=== PATIENT | male | born 1930 | race Caucasian/White ===

== ENCOUNTER 2016-07-13 07:57 | Inpatient (IN) | payer MEDICARE, BC ==
[2016-07-13] MEDS: Sodium Chloride 0.9% 10 ML Syringe FLUSH PRN ×5 (07:53→20:56)
[~2016-07-13 07:57] MED LIST: Furosemide 40 MG/4 ML VIAL IVPUSH ONE
[2016-07-13] MEDS ORDERED: Furosemide 40 MG/4 ML VIAL ONE (08:01)
[2016-07-13] MEDS ORDERED: Furosemide 40 MG/4 ML VIAL IVPUSH ONE ×2 (08:40→08:41)
[2016-07-13] MEDS ORDERED: Nitroglycerin/D5W 25 MG/250 ML BOTTLE IV SCH (09:15)
[2016-07-13] MEDS ORDERED: Morphine 2 MG/ML Syringe IVPUSH PRN (09:15)
[2016-07-13] MEDS ORDERED: Morphine 2 MG/ML Syringe IM ONE (09:21)
[2016-07-13] MEDS: Potassium Chloride 20 MEQ Tab.ER PO SCH ×2 (09:44→20:55)
--- NOTE | 2016-07-13 10:13 | PCM.HP ---
[id number]: Patient, EMS notes reviewed, Old records History Limitations: Reports: Respiratory distress - History of Present Illness Initial Comments - Free Text/Narative: 86-year-old male brought in with acute shortness of breath. Sudden onset this morning described as tightness and associated with difficulty breathing. The ambulance reported oxygenation of 81% on the scene. Patient has a history of CHF, atrial fibrillation, hyperlipidemia, and chronic kidney disease. He takes Coumadin for the atrial fibrillation. He complains of no fever or chills although the history is difficult to obtain because he is in mild to moderate respiratory distress. - Related Data Allergies/Adverse Reactions: Allergies Allergy/AdvReac Type Severity Reaction Status Date / Time No Known Allergies Allergy Verified 07/13/16 07:57 Home Medications: Home Meds Acetaminophen [Tylenol Extra Strength] 1,000 mg PO ACBREAKFAST 09/09/15 [History ] Acetaminophen [Tylenol Extra Strength] 500 mg PO BEDTIME 09/09/15 [History] Allopurinol [Zyloprim] 150 mg PO DAILY 09/09/15 [History] Aspirin [Halfprin] 81 mg PO DAILY 09/09/15 [History] Calcium Carb & Citrate/Vit D3 [Calcium + D3 ER Tablet] 1 each PO BID 09/09/15 [ History] Digoxin [Lanoxin] 125 mcg PO DAILY 09/09/15 [History] Furosemide [Lasix] 40 mg PO DAILY 09/09/15 [History] Levothyroxine [Synthroid] 50 mcg PO DAILY 09/09/15 [History] Metoprolol Succinate 50 mg PO DAILY 09/09/15 [History] Omeprazole 20 mg PO DAILY 09/09/15 [History] Simvastatin [Zocor] 80 mg PO BEDTIME 09/09/15 [History] Spironolactone [Aldactone] 25 mg PO DAILY 09/09/15 [History] Tamsulosin [Flomax] 0.4 mg PO DAILY 09/09/15 [History] Triamcinolone Acetonide [Triamcinolone Acetonide 0.1% Crm] 15 gm TOP BID [History] Warfarin [Coumadin] 4 mg PO DAILY 09/09/15 [History] traMADol [Ultram] 50 mg PO BID 09/09/15 [History] Magnesium Oxide 500 mg PO DAILY 12/04/15 [History] Past Medical History HEENT History: Reports: Cataract, Hard of hearing, Impaired vision Cardiovascular History: Reports: Afib, Bypass, Heart valve replacement, High cholesterol, Hypertension, [place] Other Cardiovascular History: [place] 2008- bypass Respiratory History: Reports: SOB Gastrointestinal History: Reports: Cholelithiasis Musculoskeletal History: Reports: Arthritis, Back pain, chronic, Gout, Osteoarthritis Neurological History: Reports: CVA, TIA Endocrine/Metabolic History: Reports: Hypothyroidism Dermatologic History: Reports: Chronic cellulitis, Venous stasis dermatitis - Infectious Disease History Infectious Disease History: Reports: Chicken pox - Past Surgical History HEENT Surgical History: Reports: Oral surgery Cardiovascular Surgical History: Reports: Carotid endarterectomy, Coronary artery bypass Respiratory Surgical History: Reports: None GI Surgical History: Reports: Cholecystectomy Neurological Surgical History: Reports: None Musculoskeletal Surgical History: Reports: None Dermatological Surgical History: Reports: None Social & Family History - Family History Family Medical History: Noncontributory - Tobacco Use Smoking Status *Q: Former Smoker Years of Tobacco use: 20 Used Tobacco, but Quit: Yes Month Tobacco Last Used: n/a Second Hand Smoke Exposure: No - Caffeine Use Caffeine Use: Reports: Coffee, Soda - Alcohol Use Days Per Week of Alcohol Use: 0 - Recreational Drug Use Recreational Drug Use: No H&P Review of Systems - Review of Systems: Review Of Systems: ROS reveals no pertinent complaints other than HPI. Exam - Exam Exam: See Below - Vital Signs Vital Signs: Last Vital Signs Temp 97.6 F 07/13/16 07:45 Pulse 110 H 07/13/16 07:45 Resp 30 H 07/13/16 07:45 BP 179/97 H 07/13/16 07:45 Pulse Ox 97 07/13/16 07:45 Weight: 77.111 kg - Exam Quality Assessment: supplemental oxygen General: moderate distress HEENT: PERRLA, Hearing intact, Mucosa moist & pink, Nares patent, Normal nasal septum, Posterior pharynx clear, Conjunctiva clear, EOMI, EACs clear, TMs clear Neck: supple, trachea midline, 2 Lungs: Decreased breath sounds, Crackles Cardiovascular: irregular rhythm Abdomen: normal bowel sounds, soft (Male) Exam: Deferred Rectal (Males) Exam: Deferred Back Exam: normal inspection, full range of motion, NT Extremities: edema Skin: warm Neurological: cranial nerves intact, reflexes equal bilateral Neuro Extensive - Mental Status: alert, oriented x3, normal mood/affect, normal cognition Neuro Extensive - Motor, Sensory, Reflexes: CN II-XII intact, normal gait, normal reflexes Psychiatric: normal affect - Patient Data Result Diagrams: 07/13/16 08:00 07/13/16 08:00 Imaging Impressions last 24 hrs: CXR shows bilateral infiltrates ECHO from 2016 shows EF of 30-40% EKG INTERPRETATION Rhythm: a-fib *Q Meaningful Use (ADM) - VTE *Q VTE Criteria *Q: - Stroke *Q Stroke Criteria *Q: - AMI *Q AMI Criteria *Q: - Problem List (1) CHF (congestive heart failure) SNOMED Code(s): 92191568 ICD Code: I50.9 - HEART FAILURE, UNSPECIFIED Status: Acute Current Visit : Yes Qualifiers: Congestive heart failure type: combined Congestive heart failure chronicity : acute on chronic Qualified Code(s): I50.43 - Acute on chronic combined systolic (congestive) and diastolic (congestive) heart failure (2) CKD (chronic kidney disease) SNOMED Code(s): 714097910 ICD Code: N18.9 - CHRONIC KIDNEY DISEASE, UNSPECIFIED Status: Chronic Current Visit: Yes Qualifiers: Chronic kidney disease stage: stage 3 (moderate) Qualified Code(s): N18.3 - Chronic kidney disease, stage 3 (moderate) (3) Afib SNOMED Code(s): 96561532 ICD Code: I48.91 - UNSPECIFIED ATRIAL FIBRILLATION Status: Chronic Current Visit: Yes Qualifiers: Atrial fibrillation type: chronic Qualified Code(s): I48.2 - Chronic atrial fibrillation (4) Anemia SNOMED Code(s): 684647551 ICD Code: D64.9 - ANEMIA, UNSPECIFIED Status: Acute Current Visit: Yes Qualifiers: Anemia type: other cause (5) BPH (benign prostatic hyperplasia) SNOMED Code(s): 965148409, 077758401 ICD Code: N40.0 - BENIGN PROSTATIC HYPERPLASIA WITHOUT LOWER URINRY TRACT SYMP Status: Acute Current Visit: Yes Qualifiers: Prostatic enlargement morphology: unspecified morphology Lower urinary tract symptom presence: symptoms present Qualified Code(s): N40.1 - Benign prostatic hyperplasia with lower urinary tract symptoms (6) Gout SNOMED Code(s): 86444252 ICD Code: M10.9 - GOUT, UNSPECIFIED Status: Chronic Current Visit: Yes Qualifiers: Gout site: unspecified site (7) Hyperlipemia SNOMED Code(s): 06191040 ICD Code: E78.5 - HYPERLIPIDEMIA, UNSPECIFIED Status: Chronic Current Visit: Yes Qualifiers: Hyperlipidemia type: unspecified Qualified Code(s): E78.5 - Hyperlipidemia , unspecified (8) HTN (hypertension) SNOMED Code(s): 85434732 ICD Code: I10 - ESSENTIAL (PRIMARY) HYPERTENSION Status: Acute Current Visit: Yes Problem List Initiated/Reviewed/Updated: Yes Orders Last 24hrs: Medication Orders Furosemide (Lasix) 20 mg IVPUSH TID LEONIDAS Nitroglycerin/Dextrose (Nitroglycerin 25 Mg/D5w 250 Ml) 25 mg in 250 mls @ 6 mls/hr IV TITRATE LEONIDAS; 10 MCG/MIN PRN Reason: Protocol Morphine Sulfate (Morphine) 2 mg IVPUSH Q2H PRN PRN Reason: Pain (severe 7-10) Potassium Chloride (Klor-Con M20) 20 meq PO BID LEONIDAS Last Admin: 07/13/16 09:44 Dose: 20 meq Sodium Chloride (Saline Flush) 10 ml FLUSH ASDIRECTED PRN PRN Reason: Keep Vein Open Last Admin: 07/13/16 09:31 Dose: 10 ml Admin: 07/13/16 09:07 Dose: 10 ml Admin: 07/13/16 08:04 Dose: 10 ml Admin: 07/13/16 07:53 Dose: 10 ml Assessment/Plan Comment:: He got 80 mg of Lasix in the emergency room and put out 600 mL of urine. We'll continue diuresis and I have ordered morphine when necessary, and a nitroglycerin drip for diuresis and pulmonary edema. We'll continue the rest of his home medication. We'll repeat labs in the morning. Oxygen by nasal cannula to keep oxygen above 92% if possible. He had an echo in August,with EF estimated at 30-40%.
[2016-07-13] MEDS ORDERED: Sodium Chloride 0.9% 1,000 ML IV SCH (10:25)
[2016-07-13] MEDS: Furosemide 20 MG/2 ML VIAL IVPUSH SCH ×2 (13:58→20:55)
--- NOTE | 2016-07-14 05:31 | ER ---
DATE SEEN: 07/13/2016 REASON FOR VISIT: Shortness of breath. HISTORY OF PRESENT ILLNESS: An 86-year-old male, brought in by ambulance from [place] because of shortness of breath. He called the ambulance because he was feeling short of breath. The EMS arrived and found him to be hypoxic at 81%. He has shortness of breath, cough, but denies any fever or chills. No chest pain. PAST MEDICAL HISTORY: CHF, atrial fibrillation, chronic renal failure, CKD, anemia of chronic disease. SOCIAL HISTORY: Lives alone. PHYSICAL EXAMINATION: VITAL SIGNS: Blood pressure is 179/97, respiratory rate is 30, and temperature 97.6. ENT: Negative. NECK: No JVD. CARDIOVASCULAR: Irregular rate and rhythm. RESPIRATORY: Crackles bilaterally. Mild distress. EXTREMITIES: 2+ peripheral edema. MENTAL STATUS: Alert. LABORATORY DATA: White cell count is normal, hemoglobin is 11.4, potassium is 138, creatinine 1.5. BNP is 1770. IMPRESSION: Acute CHF exacerbation. PLAN: Chest x-ray, portable, revealed bilateral infiltrates, possibly CHF related. Could not rule out pneumonia. [facility] because of bed availability. /[id number] NALLELY/MIRNA
[2016-07-14] MEDS: Furosemide 20 MG/2 ML VIAL IVPUSH SCH (08:05)
[2016-07-14] MEDS: Potassium Chloride 20 MEQ Tab.ER PO SCH ×2 (08:05→20:21)
[2016-07-14] MEDS: Sodium Chloride 0.9% 10 ML Syringe FLUSH PRN (08:10)
[2016-07-14] MEDS: Sodium Chloride 0.65% Nasal Spray 45 ML Bottle NAS SCH (09:35)
--- NOTE | 2016-07-14 12:54 | PN ---
DATE SEEN: 07/14/2016 CHIEF COMPLAINT: Shortness of breath. HISTORY OF PRESENT ILLNESS: An 86-year-old male who was admitted yesterday for shortness of breath, thought to be pulmonary edema. He feels better this morning. No chest pain. He complains of nose blockage on the left, no leg swelling. He feels short of breath only on moderate ambulation. No fever. PAST MEDICAL HISTORY: CKD, anemia, epistaxis, and atrial fibrillation. ALLERGIES: Reviewed. SOCIAL HISTORY: He is a former smoker. PHYSICAL EXAMINATION: VITAL SIGNS: Blood pressure is 152/73, pulse is 104 temperature 97.4. ENT: Negative except a blockage on the left nostril by a chunk of mucus. NECK: Supple. CHEST: Clear posteriorly. CARDIOVASCULAR: Irregular rate and rhythm. EXTREMITIES: No edema. Mental Status: Alert. LABORATORY DATA: Creatinine 1.6 today, CO2 is 21, troponin 0.011. BNP is pending. IMPRESSION: 1. Pulmonary edema from congestive heart failure, improved. 2. Hypertension. 3. Chronic kidney disease. 4. Anemia of chronic disease. 5. Atrial fibrillation. 6. Hyperlipidemia. 7. Gout. 8. BPH. PLAN: My plan is to convert IV Lasix to oral, change from ICU, discontinue Ortiz, and repeat labs in the morning. /[id number] NALLELY/MIRNA
[2016-07-14] MEDS: Furosemide 40 MG Tab PO SCH (13:43)
[2016-07-14] MEDS ORDERED: Warfarin 4 MG Tab PO SCH (16:00)
[2016-07-15] MEDS: Furosemide 40 MG Tab PO SCH ×2 (08:17→14:39)
[2016-07-15] MEDS: Potassium Chloride 20 MEQ Tab.ER PO SCH ×2 (08:18→20:33)
[2016-07-15] MEDS: Sodium Chloride 0.65% Nasal Spray 45 ML Bottle NAS SCH (08:18)
--- NOTE | 2016-07-15 08:19 | PN ---
DATE SEEN: 07/15/2016 CHIEF COMPLAINT: CHF. HISTORY OF PRESENT ILLNESS: This is an 86-year-old male, admitted for CHF, pulmonary edema has improved, but still has shortness of breath on ambulation. Denies any chest pain, leg swelling, fever, or cough. PAST MEDICAL HISTORY: He has a history of chronic kidney disease, anemia, hypertension, and CHF. He also has hyperlipidemia. SOCIAL HISTORY: He lives alone. Does not smoke or drink. PHYSICAL EXAMINATION: GENERAL: Not in any distress. VITAL SIGNS: Blood pressure is 120/62, pulse is 92, temperature 97.5. EARS, NOSE, AND THROAT: Negative. NECK: No JVD. CARDIOVASCULAR: Normal except with irregular rate and rhythm. RESPIRATORY: Clear. EXTREMITIES: No edema. MENTAL STATUS: Alert. LABORATORY DATA: BNP is down to 11,017, creatinine is up to 1.7. IMPRESSION: 1. Congestive heart failure exacerbation. 2. Chronic kidney disease. 3. Hypertension. 4. Atrial fibrillation. PLAN: We will keep him 1 more day. I will ask Physical therapy to evaluate him for possibility of going home alone and his ability to take care of himself. Repeat a basic metabolic profile in the morning. We will continue 40 mg of Lasix b.i.d. /[id number] NALLELY/MIRNA
[2016-07-15] MEDS ORDERED: Warfarin 4 MG Tab PO SCH (16:00)
[2016-07-16 08:06] VITALS: BP 131/66
--- NOTE | 2016-07-16 08:29 | PN ---
DATE SEEN: 07/16/2016 CHIEF COMPLAINT: Congestive heart failure. HISTORY OF PRESENT ILLNESS: This is an 86-year-old male from [place], [place], has a history of CHF, admitted for pulmonary edema and respiratory failure due to CHF, has improved with IV and eventually oral diurese. No complaints overnight. REVIEW OF SYSTEMS: No chest pain. No fever or chills. No headaches. CURRENT MEDICATIONS: Please see the nurse's notes and the electronic record. PHYSICAL EXAMINATION: VITAL SIGNS: Blood pressure is measured at 122/57, pulse is 88, and temp 97.7. EARS, NOSE, AND THROAT: Negative. NECK: No JVD. CHEST: Clear posteriorly. CARDIOVASCULAR: Irregular rate and rhythm. EXTREMITIES: No edema. MENTAL STATUS: Alert. LABORATORY DATA: BNP today is 1020. INR 2.05. Creatinine is 1.8. IMPRESSION: 1. Congestive heart failure exacerbation, improved; atrial fibrillation, stable on chronic anticoagulation. 2. Hypertension, stable. 3. Chronic kidney disease, mild exacerbation due to diuresis. PLAN: We will discharge him home today. I advised him to see his physician within 1 week of discharge and return to the ED with any worsening of symptoms. /[id number] NALLELY/MIRNA BATES
[2016-07-16] MEDS: Potassium Chloride 20 MEQ Tab.ER PO SCH (08:34)
[2016-07-16] MEDS: Sodium Chloride 0.65% Nasal Spray 45 ML Bottle NAS SCH (08:34)
[2016-07-16] MEDS: Furosemide 40 MG Tab PO SCH (08:34)
--- NOTE | 2016-07-16 13:00 | DISCH ---
DISCHARGE DATE: 07/16/2016 ADMISSION DIAGNOSES: 1. Congestive heart failure exacerbation. 2. Atrial fibrillation. 3. Chronic kidney disease. 4. Atrial fibrillation. 5. Hypertension. 6. Hyperlipidemia. 7. Gout. 8. Benign prostatic hypertrophy. 9. Anemia of chronic disease. DISCHARGE DIAGNOSES: 1. Congestive heart failure exacerbation. 2. Atrial fibrillation. 3. Chronic kidney disease. 4. Atrial fibrillation. 5. Hypertension. 6. Hyperlipidemia. 7. Gout. 8. Benign prostatic hypertrophy. 9. Anemia of chronic disease. CONSULTATIONS: None except physical therapy and occupational therapy BRIEF HISTORY: This is an 86-year-old male from [place], [place] is known to have atrial fibrillation, on chronic anticoagulation and history of CHF. He presented with shortness of breath and hypoxia, found to be in pulmonary edema. He was initially given Lasix and IV nitroglycerin drip. His symptoms improved dramatically over the next 2 to 3 days. He needed time for rehabilitation and oxygenation to normalize. He was eventually off oxygen. His heart rate remained stable throughout. Kidney was at 1.5 at admission and 1.8 on discharge. I discharged him on the following medications: 1. Lasix 20 mg b.i.d., previously on 20 mg daily. 2. 20 mEq of potassium chloride b.i.d. 3. He will also go on Coumadin as directed. 4. Finasteride 5 mg a day. 5. Metoprolol 50 mg daily. 6. Allopurinol 300 mg daily. 7. Aspirin 81 mg a day. 8. Calcium and vitamin D3 one a day. 9. Digoxin 125 mcg a day. 10.Levothyroxine 50 mcg daily. 11.Simvastatin 80 mg a day. 12.Flomax 0.4 mg daily. 13.He also takes triamcinolone cream b.i.d. 14.50 mg of tramadol b.i.d. FOLLOWUP: He will see his physician at the [facility], possibly at the end of this week. He is still weak and has difficulty with medications. I have suggested home health visit to help with medications and possibly with monitoring weight, symptoms, and coordinating phone calls to the physicians. I spent more than 35 minutes in the discharge of the patient. /[id number] NALLELY/MIRNA BATES
== END 2016-07-16 13:07 | disposition home health service (06) | DRG 291 ==
LOC: FB.ED 07:57 → FB.ICU 09:22 → FB.MS 07-14 08:30
PROVIDERS: ADMIT Family Medicine; ATTEND Family Medicine
DX: I13.0 Hypertensive heart and chronic kidney disease with heart failure and stage 1 through stage 4 chronic kidney disease, or unspecified chronic kidney disease (principal); I50.43 Acute on chronic combined systolic (congestive) and diastolic (congestive) heart failure; I48.2 Chronic atrial fibrillation; N18.3 Chronic kidney disease, stage 3 (moderate); E03.9 Hypothyroidism, unspecified; Z87.891 Personal history of nicotine dependence; Z79.01 Long term (current) use of anticoagulants; R09.02 Hypoxemia; R06.02 Shortness of breath; D63.1 Anemia in chronic kidney disease; N40.1 Benign prostatic hyperplasia with lower urinary tract symptoms; E78.5 Hyperlipidemia, unspecified; Z95.1 Presence of aortocoronary bypass graft; Z95.2 Presence of prosthetic heart valve; I25.2 Old myocardial infarction; Z86.73 Personal history of transient ischemic attack (TIA), and cerebral infarction without residual deficits; M10.9 Gout, unspecified; M19.90 Unspecified osteoarthritis, unspecified site; M54.9 Dorsalgia, unspecified; G89.29 Other chronic pain; Z79.82 Long term (current) use of aspirin
CPT/HCPCS: 36415; 71010; 80053; 83880; 84484; 85025; 85610; 93005; 96372; 96374; 96375; 99283; 99285; J1940 ×2; J7050 ×3; 82550; 82553; 97162-GP; 97165-GO; A9270-GY; J2270; J7040

== ENCOUNTER 2016-07-26 14:19 | Inpatient (IN) | payer MEDICARE, BC ==
--- NOTE | 2016-07-26 14:45 | EDM.PDOC ---
ED HPI RENAL/ - General Stated Complaint: POTASSIUM LEVEL Time Seen by Provider: 07/26/16 14:19 Source: Reports: Patient History Limitations: Reports: No limitations - History of Present Illness INITIAL COMMENTS - FREE TEXT/NARRATIVE: 86 years old w m came to the ed 1 day after he was seen at the [facility] in [place]. He received a phone call today, his potassium would be 6.0. Pt denied any physical symptoms. Pt is on oral potassium daily. H/O CHF H/O a-f, was at one time on dialysis. Poor historian. No family is present. ECH showed a fib with SVR. No peaked T waves. Symptom Onset Date: 07/25/16 Symptom Onset Time: 10:00 Timing/Duration: Reports: Day(s): Severity: moderate Associated Symptoms: Reports: denies other symptoms - Related Data Allergies/ADRs: Allergies Allergy/AdvReac Type Severity Reaction Status Date / Time No Known Allergies Allergy Verified 07/26/16 15:19 Home Meds: Home Meds Acetaminophen [Tylenol Extra Strength] 1,000 mg PO ACBREAKFAST 09/09/15 [History ] Acetaminophen [Tylenol Extra Strength] 500 mg PO BEDTIME 09/09/15 [History] Allopurinol [Zyloprim] 150 mg PO DAILY 09/09/15 [History] Aspirin [Halfprin] 81 mg PO DAILY 09/09/15 [History] Calcium Carb & Citrate/Vit D3 [Calcium + D3 ER Tablet] 1 each PO BID 09/09/15 [ History] Digoxin [Lanoxin] 125 mcg PO MOWEFR 09/09/15 [History] Levothyroxine [Synthroid] 50 mcg PO DAILY 09/09/15 [History] Metoprolol Succinate 50 mg PO DAILY 09/09/15 [History] Omeprazole 20 mg PO DAILY 09/09/15 [History] Simvastatin [Zocor] 80 mg PO BEDTIME 09/09/15 [History] Tamsulosin [Flomax] 0.4 mg PO DAILY 09/09/15 [History] Triamcinolone Acetonide [Triamcinolone Acetonide 0.1% Crm] 15 gm TOP BID [History] Warfarin [Coumadin] 4 mg PO BEDTIME 09/09/15 [History] traMADol [Ultram] 50 mg PO BID 09/09/15 [History] Magnesium Oxide 500 mg PO DAILY 12/04/15 [History] Finasteride 5 mg PO DAILY 07/15/16 [History] Furosemide [Lasix] 20 mg PO BID #30 tab 07/16/16 [Rx] Potassium Chloride [Klor-Con M20] 20 meq PO BID #30 tab.er 07/16/16 [Rx] Past Medical History HEENT History: Reports: Cataract, Hard of hearing, Impaired vision Cardiovascular History: Reports: Afib, Bypass, Heart valve replacement, High cholesterol, Hypertension, CO Other Cardiovascular History: CO 2007- bypass Respiratory History: Reports: SOB Gastrointestinal History: Reports: Cholelithiasis Musculoskeletal History: Reports: Arthritis, Back pain, chronic, Gout, Osteoarthritis Neurological History: Reports: CVA, TIA Endocrine/Metabolic History: Reports: Hypothyroidism Dermatologic History: Reports: Chronic cellulitis, Venous stasis dermatitis - Infectious Disease History Infectious Disease History: Reports: Chicken pox - Past Surgical History HEENT Surgical History: Reports: Oral surgery Cardiovascular Surgical History: Reports: Carotid endarterectomy, Coronary artery bypass Respiratory Surgical History: Reports: None GI Surgical History: Reports: Cholecystectomy Neurological Surgical History: Reports: None Musculoskeletal Surgical History: Reports: None Dermatological Surgical History: Reports: None Social & Family History - Family History Family Medical History: Noncontributory - Tobacco Use Smoking Status *Q: Former Smoker Years of Tobacco use: 20 Used Tobacco, but Quit: Yes Month Tobacco Last Used: n/a Second Hand Smoke Exposure: No - Caffeine Use Caffeine Use: Reports: Coffee, Soda - Alcohol Use Days Per Week of Alcohol Use: 0 - Recreational Drug Use Recreational Drug Use: No ED ROS GENERAL - Review of Systems Review Of Systems: See Below Constitutional: Reports: no symptoms HEENT: Reports: No symptoms Respiratory: Reports: No Symptoms Cardiovascular: Reports: No symptoms Endocrine: Reports: no symptoms GI/Abdominal: Reports: No symptoms : Reports: no symptoms Musculoskeletal: Reports: no symptoms Skin: Reports: no symptoms Neurological: Reports: No Symptoms Psychiatric: Reports: No symptoms Hematologic/Lymphatic: Reports: no symptoms Immunologic: Reports: no symptoms ED EXAM, RENAL/ - Physical Exam Exam: See Below Exam Limited By: Other (poor historian) General Appearance: alert, WD/WN, mild distress, thin Eye Exam: bilateral eye: normal inspection Ears: normal external exam, normal canal Nose: normal inspection, normal mucosa Throat/Mouth: Normal inspection, Normal lips Head: atraumatic, normocephalic Neck: normal inspection, supple, non-tender, full range of motion Respiratory/Chest: no respiratory distress, lungs clear, normal breath sounds Cardiovascular: bradycardia, irregularly irregular GI/Abdominal: normal bowel sounds (Male) Exam: Deferred Rectal (Males) Exam: Deferred Back Exam: normal inspection, full range of motion Extremities: normal inspection, normal range of motion, non-tender, no pedal edema Neurological: alert, oriented, CN II-XII intact, normal cognition, normal gait EKG INTERPRETATION EKG Date: 07/26/16 Time: 15:05 Rhythm: a-fib Rate (beats/min): 50 [place]: normal P-wave: absent QRS: normal ST-T: depressed (t wave inversions ant lat leads) QT: normal Comparison: NA - no prior EKG Course - Vital Signs Text/Narrative:: 86 years old w m came to the ed 1 day after he was seen at the [facility] in [place]. He received a phone call today, his potassium would be 6.0. Pt denied any physical symptoms. Pt is on oral potassium daily. H/O CHF H/O a-f, was at one time on dialysis. Poor historian. No family is present. ECH showed a fib with SVR. No peaked T waves. PE: Weak, Sinusbradycardia, thin A fib with SVR Lab; Potassium 6.4 nit hemolyzed ECG: A fib, no peaked t waves, T Wave inversions ant lat leads. Impression: Hyperkalemia, A Fib with SVR Tx: Hyperkalemia protocol. Reexam: Improved Plan: Admit to ICU Last Recorded V/S: Last Vital Signs Temp 35.6 C 07/26/16 17:30 Pulse 64 07/26/16 21:00 Resp 18 07/26/16 21:00 BP 100/36 L 07/26/16 21:00 Pulse Ox 96 07/26/16 21:00 - Orders/Labs/Meds Orders: Active Orders 24 hr Category Date Time Status Sodium Chloride 0.9% [Normal Saline] 1,000 ml Med 07/26/16 16:15 Active IV ASDIRECTED EKG 12 Lead [EK] Routine Ther 07/26/16 14:48 Ordered Medication Orders Allopurinol (Zyloprim) 150 mg PO DAILY [facility] Aspirin (Halfprin) 81 mg PO DAILY [facility] Calcium Carbonate (Calcium Carbonate/Vitamin D 1250 Mg-200 Unit) 1 tab PO BID [facility] Last Admin: 07/26/16 20:56 Dose: 1 tab Finasteride (Proscar) 5 mg PO DAILY [facility] Furosemide (Lasix) 20 mg IVPUSH DAILY [facility] Sodium Chloride (Normal Saline) 1,000 mls @ 100 mls/hr IV ASDIRECTED [facility] Last Admin: 07/26/16 16:04 Dose: 125 mls/hr Levothyroxine Sodium (Synthroid) 50 mcg PO DAILY [facility] Metoprolol Succinate (Toprol Xl) 50 mg PO DAILY [facility] Omeprazole (Omeprazole) 20 mg PO DAILY [facility] Sodium Polystyrene Sulfonate (Kayexalate) 15 gm PO Q6H [facility] Last Admin: 07/26/16 18:35 Dose: 15 gm Tamsulosin HCl (Flomax) 0.4 mg PO DAILY [facility] Tramadol HCl (Ultram) 50 mg PO BID [facility] Last Admin: 07/26/16 20:56 Dose: 50 mg Triamcinolone Acetonide (Triamcinolone Acetonide 0.1% Crm) 0 gm TOP BID [facility] Last Admin: 07/26/16 21:01 Dose: 1 applic Warfarin Sodium (Coumadin) 4 mg PO DAILY@1600 [facility] Last Admin: 07/26/16 18:51 Dose: 4 mg Labs: Laboratory Tests 07/26/16 07/26/16 07/26/16 Range/Units 14:50 14:50 14:50 WBC 5.0 (4.5-12.0) X10-3/uL RBC 2.97 L (4.30-5.75) x10(6)uL Hgb 10.5 L (11.5-15.5) g/dL Hct 30.6 (30.0-51.3) % MCV 103.0 H (80-96) fL MCH 35.5 H (27.7-33.6) pg MCHC 34.4 (32.2-35.4) g/dL RDW 17.7 H (11.5-15.5) % Plt Count 197 (125-369) X10(3)uL MPV 8.7 (7.4-10.4) fL Neut % (Auto) 69.1 (46-82) % Lymph % (Auto) 20.3 (13-37) % Lamb % (Auto) 6.9 (4-12) % Eos % (Auto) 2 (1.0-5.0) % Baso % (Auto) 2 (0-2) % Neut # (Auto) 3.5 (1.6-8.3) # Lymph # (Auto) 1.0 (0.6-5.0) # Lamb # (Auto) 0.3 (0.0-1.3) # Eos # (Auto) 0.1 (0.0-0.8) # Baso # (Auto) 0.1 (0.0-0.2) # PT (8.7-11.1) INR (0.89-1.13) ABG pH (7.35-7.45) ABG pCO2 (35-45) mmHg ABG pO2 (83-108) mmHg ABG HCO3 (22-26) mmol/L ABG O2 Saturation (96-97) % ABG Base Excess (-2-2) Huan Test O2 Delivery Device Sodium 139 (135-145) mmol/L Potassium 6.4 H* D (3.5-5.3) mmol/L Chloride 107 D (100-110) mmol/L Carbon Dioxide 25 (23-29) mmol/L BUN 50 H (8-23) mg/dL Creatinine 2.0 H* (0.6-1.3) mg/dL Est Cr Clr Drug Dosing TNP Estimated GFR (MDRD) 32 L (>60) BUN/Creatinine Ratio 25.0 H (9-20) Glucose 103 (80-116) mg/dL Calcium 9.0 (8.6-10.2) mg/dL Magnesium 1.9 (1.8-2.5) mg/dL Troponin I (0.02-0.06) NG/ML B-Natriuretic Peptide (0-100) pg/mL Urine Color (YELLOW) Urine Appearance (CLEAR) Urine pH (5.0-6.5) Ur Specific [place] (1.010-1.025) Urine Protein (NEGATIVE) mg/dL Urine Glucose (UA) (NEGATIVE) mg/dL Urine Ketones (NEGATIVE) mg/dL Urine Occult Blood (NEGATIVE) Urine Nitrite (NEGATIVE) Urine Bilirubin (NEGATIVE) Urine Urobilinogen (NEGATIVE) mg/dL Ur Leukocyte Esterase (NEGATIVE) Urine RBC (0) Urine WBC (0) Ur Epithelial Cells Ur Squamous Epith Cells Ur Renal Epithelial Cell Urine Bacteria (NS) 07/26/16 07/26/16 07/26/16 Range/Units 14:50 14:50 14:50 WBC (4.5-12.0) X10-3/uL RBC (4.30-5.75) x10(6)uL Hgb (11.5-15.5) g/dL Hct (30.0-51.3) % MCV (80-96) fL MCH (27.7-33.6) pg MCHC (32.2-35.4) g/dL RDW (11.5-15.5) % Plt Count (125-369) X10(3)uL MPV (7.4-10.4) fL Neut % (Auto) (46-82) % Lymph % (Auto) (13-37) % Lamb % (Auto) (4-12) % Eos % (Auto) (1.0-5.0) % Baso % (Auto) (0-2) % Neut # (Auto) (1.6-8.3) # Lymph # (Auto) (0.6-5.0) # Lamb # (Auto) (0.0-1.3) # Eos # (Auto) (0.0-0.8) # Baso # (Auto) (0.0-0.2) # PT 30.5 H (8.7-11.1) INR 2.95 H (0.89-1.13) ABG pH (7.35-7.45) ABG pCO2 (35-45) mmHg ABG pO2 (83-108) mmHg ABG HCO3 (22-26) mmol/L ABG O2 Saturation (96-97) % ABG Base Excess (-2-2) Huan Test O2 Delivery Device Sodium (135-145) mmol/L Potassium (3.5-5.3) mmol/L Chloride (100-110) mmol/L Carbon Dioxide (23-29) mmol/L BUN (8-23) mg/dL Creatinine (0.6-1.3) mg/dL Est Cr Clr Drug Dosing Estimated GFR (MDRD) (>60) BUN/Creatinine Ratio (9-20) Glucose (80-116) mg/dL Calcium (8.6-10.2) mg/dL Magnesium (1.8-2.5) mg/dL Troponin I < 0.01 L (0.02-0.06) NG/ML B-Natriuretic Peptide 1220 H* (0-100) pg/mL Urine Color (YELLOW) Urine Appearance (CLEAR) Urine pH (5.0-6.5) Ur Specific [place] (1.010-1.025) Urine Protein (NEGATIVE) mg/dL Urine Glucose (UA) (NEGATIVE) mg/dL Urine Ketones (NEGATIVE) mg/dL Urine Occult Blood (NEGATIVE) Urine Nitrite (NEGATIVE) Urine Bilirubin (NEGATIVE) Urine Urobilinogen (NEGATIVE) mg/dL Ur Leukocyte Esterase (NEGATIVE) Urine RBC (0) Urine WBC (0) Ur Epithelial Cells Ur Squamous Epith Cells Ur Renal Epithelial Cell Urine Bacteria (NS) 07/26/16 07/26/16 Range/Units 15:55 16:35 WBC (4.5-12.0) X10-3/uL RBC (4.30-5.75) x10(6)uL Hgb (11.5-15.5) g/dL Hct (30.0-51.3) % MCV (80-96) fL MCH (27.7-33.6) pg MCHC (32.2-35.4) g/dL RDW (11.5-15.5) % Plt Count (125-369) X10(3)uL MPV (7.4-10.4) fL Neut % (Auto) (46-82) % Lymph % (Auto) (13-37) % Lamb % (Auto) (4-12) % Eos % (Auto) (1.0-5.0) % Baso % (Auto) (0-2) % Neut # (Auto) (1.6-8.3) # Lymph # (Auto) (0.6-5.0) # Lamb # (Auto) (0.0-1.3) # Eos # (Auto) (0.0-0.8) # Baso # (Auto) (0.0-0.2) # PT (8.7-11.1) INR (0.89-1.13) ABG pH 7.42 (7.35-7.45) ABG pCO2 33 L (35-45) mmHg ABG pO2 91 (83-108) mmHg ABG HCO3 21 L (22-26) mmol/L ABG O2 Saturation 97 (96-97) % ABG Base Excess -2.3 L (-2-2) Huan Test N/a O2 Delivery Device Room air Sodium (135-145) mmol/L Potassium (3.5-5.3) mmol/L Chloride (100-110) mmol/L Carbon Dioxide (23-29) mmol/L BUN (8-23) mg/dL Creatinine (0.6-1.3) mg/dL Est Cr Clr Drug Dosing Estimated GFR (MDRD) (>60) BUN/Creatinine Ratio (9-20) Glucose (80-116) mg/dL Calcium (8.6-10.2) mg/dL Magnesium (1.8-2.5) mg/dL Troponin I (0.02-0.06) NG/ML B-Natriuretic Peptide (0-100) pg/mL Urine Color Yellow (YELLOW) Urine Appearance Clear (CLEAR) Urine pH 7.0 H (5.0-6.5) Ur Specific [place] 1.005 L (1.010-1.025) Urine Protein Negative (NEGATIVE) mg/dL Urine Glucose (UA) Normal (NEGATIVE) mg/dL Urine Ketones Negative (NEGATIVE) mg/dL Urine Occult Blood Negative (NEGATIVE) Urine Nitrite Negative (NEGATIVE) Urine Bilirubin Negative (NEGATIVE) Urine Urobilinogen Normal (NEGATIVE) mg/dL Ur Leukocyte Esterase Small H (NEGATIVE) Urine RBC 0-5 (0) Urine WBC 0-5 (0) Ur Epithelial Cells Few Ur Squamous Epith Cells Rebar Worker Ur Renal Epithelial Cell Not Reportable Urine Bacteria Rare H (NS) Meds: Medications Generic Name Dose Route Start Last Admin Trade Name Freq PRN Reason Stop Dose Admin Allopurinol 150 mg 07/27/16 09:00 Zyloprim PO DAILY [facility] Aspirin 81 mg 07/27/16 09:00 Halfprin PO DAILY [facility] Calcium Carbonate 1 tab 07/26/16 21:00 07/26/16 20:56 Calcium Carbonate/Vitamin D 1250 Mg-200 Unit PO 1 tab BID [facility] Administration Finasteride 5 mg 07/27/16 09:00 Proscar PO DAILY [facility] Furosemide 20 mg 07/27/16 09:00 Lasix IVPUSH DAILY [facility] Sodium Chloride 1,000 mls @ 100 mls/hr 07/26/16 16:15 07/26/16 16:04 Normal Saline IV 125 mls/hr ASDIRECTED [facility] Administration Levothyroxine Sodium 50 mcg 07/27/16 09:00 Synthroid PO DAILY [facility] Metoprolol Succinate 50 mg 07/27/16 09:00 Toprol Xl PO DAILY [facility] Omeprazole 20 mg 07/27/16 09:00 Omeprazole PO DAILY [facility] Sodium Polystyrene Sulfonate 15 gm 07/26/16 17:30 07/26/16 18:35 Kayexalate PO 15 gm Q6H [facility] Administration Tamsulosin HCl 0.4 mg 07/27/16 09:00 Flomax PO DAILY [facility] Tramadol HCl 50 mg 07/26/16 21:00 07/26/16 20:56 Ultram PO 50 mg BID [facility] Administration Triamcinolone Acetonide 0 gm 07/26/16 21:00 07/26/16 21:01 Triamcinolone Acetonide 0.1% Crm TOP 1 applic BID [facility] Administration Warfarin Sodium 4 mg 07/26/16 17:45 07/26/16 18:51 Coumadin PO 4 mg DAILY@1600 [facility] Administration Discontinued Medications Generic Name Dose Route Start Last Admin Trade Name Freq PRN Reason Stop Dose Admin Albuterol/Ipratropium 3 ml 07/26/16 15:10 07/26/16 15:38 Duoneb 3.0-0.5 Mg/3 Ml NEB 07/26/16 15:11 3 ml ONETIME ONE Administration Calcium Chloride 1 gm 07/26/16 15:13 07/26/16 17:15 Calcium Chloride 10% IV 07/26/16 15:14 Not Given ONETIME ONE Calcium Gluconate 1 gm 07/26/16 15:19 07/26/16 16:02 Calcium Gluconate IVPUSH 07/26/16 15:20 1 gm ONETIME ONE Administration Dextrose/Water 50 ml 07/26/16 15:13 07/26/16 15:45 Dextrose 50% In Water IVPUSH 07/26/16 15:14 50 ml ONETIME ONE Administration Furosemide 40 mg 07/26/16 15:13 07/26/16 15:40 Lasix IVPUSH 07/26/16 15:14 40 mg ONETIME ONE Administration Sodium Chloride 1,000 mls @ 999 mls/hr 07/26/16 15:24 07/26/16 17:15 Normal Saline IV 07/26/16 16:24 Not Given .BOLUS ONE Insulin Human Regular 10 unit 07/26/16 15:13 07/26/16 15:54 Humulin R IVPUSH 07/26/16 15:14 10 units ONETIME ONE Administration Sodium Polystyrene Sulfonate 15 gm 07/26/16 16:51 07/26/16 17:01 Kayexalate PO 07/26/16 16:52 15 gm ONETIME ONE Administration Departure - Departure Time of Disposition: 17:10 Disposition: Admitted As Inpatient 67 Condition: fair Clinical Impression: Hyperkalemia, Atrial fibrillation, Bradycardia - My Orders Last 24 Hours: My Active Orders 07/26/16 14:48 EKG 12 Lead [EK] Routine 07/26/16 16:15 Sodium Chloride 0.9% [Normal Saline] 1,000 ml IV ASDIRECTED - Assessment/Plan Last 24 Hours: My Active Orders 07/26/16 14:48 EKG 12 Lead [EK] Routine 07/26/16 16:15 Sodium Chloride 0.9% [Normal Saline] 1,000 ml IV ASDIRECTED
[2016-07-26] MEDS ORDERED: Albuterol/Ipratropium 3.0-0.5 MG/3 ML Neb Soln NEB ONE (15:10)
[2016-07-26] MEDS ORDERED: Calcium Chloride 10% 1 GM/10 ML Syringe IV ONE (15:13)
[2016-07-26] MEDS ORDERED: Insulin Regular, Human 100 Units/ML 3 ML Vial IVPUSH ONE (15:13)
[2016-07-26] MEDS ORDERED: Furosemide 40 MG/4 ML VIAL IVPUSH ONE (15:13)
[2016-07-26] MEDS ORDERED: 50% Dextrose in Water 50 ML Syringe IVPUSH ONE (15:13)
[2016-07-26] MEDS ORDERED: Calcium Gluconate 10% 1 GM/10 ML SDV IVPUSH ONE (15:19)
[2016-07-26] MEDS ORDERED: Sodium Chloride 0.9% 1,000 ML IV ONE (15:24)
[2016-07-26] MEDS: Sodium Chloride 0.9% 1,000 ML IV SCH (16:04)
[2016-07-26] MEDS ORDERED: Sodium Polystyrene Sulfonate 15 GM/60 ML Susp 60 ML Bot PO ONE (16:51)
[2016-07-26] MEDS ORDERED: Warfarin 2 MG Tab PO SCH (17:45)
[2016-07-26] MEDS: Sodium Polystyrene Sulfonate 15 GM/60 ML Susp 60 ML Bot PO SCH ×2 (18:35→23:41)
[2016-07-26] MEDS: traMADol 50 MG Tab PO SCH (20:56)
[2016-07-26] MEDS: Calcium Carbonate/Vitamin D3 1250 MG-200 Unit Tab PO SCH (20:56)
[2016-07-26] MEDS: Triamcinolone Acetonide 0.1% Crm 15 GM Tube TOP SCH (21:01)
--- NOTE | 2016-07-27 00:41 | HP ---
ADMISSION DATE: 07/26/2016 CHIEF COMPLAINT: Hyperkalemia. HISTORY OF PRESENT ILLNESS: This patient is an 86-year-old male with a longstanding history of arteriosclerotic heart disease with previous coronary artery bypass and aortic valve replacement along with chronic atrial fibrillation on long-term anticoagulation therapy complicated by intermittent CHF, who was admitted after being seen in the emergency room with above chief complaint. He apparently was recently hospitalized with an exacerbation of his congestive heart failure. His furosemide was increased to 20 mg b.i.d. as was his potassium, which was increased to 20 mEq b.i.d. He was discharged and had a followup appointment apparently at the [facility]. Yesterday, blood work was drawn and they called him today stating that he should come to the emergency room immediately, because his potassium was too high. He says he has been feeling good and has had no other difficulties. Denies any shortness of breath or palpitations. No nausea or vomiting. Denies any muscle pain or weakness. No chest pain has been noted. He presented here and was found to have an elevated serum potassium of 6.4. He was given some IV fluids along with insulin, calcium carbonate, and his creatinine was found to be elevated at 2.0 compared to 1.5 during his previous admission. We therefore felt that admission and more aggressive therapy along with monitoring was appropriate. He says he has had no nausea, vomiting, no diarrhea. Denies any dysuria or hematuria. He has had some problems with BPH in the past with urinary difficulties, but he says he is able to void appropriately. He has noticed an improvement in his peripheral edema lightly and otherwise says his appetite has been good, he is sleeping well, he has had no other complaints. MEDICATIONS: His current medications include: 1. Digoxin 0.125 mg on Friday, Friday, and Friday. 2. Furosemide 20 mg b.i.d. 3. Potassium chloride 20 mEq b.i.d. 4. Simvastatin 80 mg daily. 5. Allopurinol 150 mg daily. 6. Aspirin 81 mg daily. 7. Tylenol 1000 mg with breakfast and 500 mg at bedtime. 8. Multivitamin with calcium and vitamin D b.i.d. 9. Finasteride 5 mg daily. 10.Levothyroxine 50 mcg daily. 11.Metoprolol succinate 100 mg daily. 12.Omeprazole 20 mg daily. 13.Tamsulosin 0.4 mg daily. 14.Warfarin 4 mg at bedtime. 15.He uses triamcinolone to intermittent skin rash 0.1% b.i.d. 16.Tramadol 50 mg b.i.d. p.r.n. for pain. ALLERGIES: None that are known. SOCIAL HISTORY: He quit smoking in 1969, he thinks before that, he was smoking probably 20 to 30 years at about a half pack to a pack per day. Alcohol none at this time. PAST MEDICAL HISTORY: It was pretty much taken from old charts as he has difficulty remembering other than that mentioned above. He has had a previous TIA and/or CVA. PAST SURGICAL HISTORY: His surgeries include the coronary artery bypass and aortic valve replacement along with right carotid endarterectomy, bilateral cataract extractions. FAMILY HISTORY: Unremarkable at this age. REVIEW OF SYSTEMS: Review of systems was discussed. He is quite hard of hearing, otherwise, he has had no other difficulties. Denies any significant joint pains or tenderness at this time. Sometimes he has a fair amount of low back pain, but he says it is somewhat better now. He has the above-mentioned intermittent dermatitis in his arms, he is using the triamcinolone for that and he says as of late he has been able to pass his water appropriately. He does admit to nocturia 2 to 3 times per night. PHYSICAL EXAMINATION: GENERAL: He appears to be fairly comfortable, in no acute distress. He is afebrile. VITAL SIGNS: Blood pressure today was 153/67, pulse is 59 and irregularly irregular, respirations were 16 and unlabored, O2 saturation on room air is 100%. HEENT: Revealed the head to be normocephalic and atraumatic. Pupils are round and reacted well to light and accommodation. Extraocular movements were intact. Sclerae and conjunctivae were clear. Intraocular lenses were noted bilaterally. Nasal passages were open without discharge. Pharynx and palate were unremarkable. He has many missing teeth in the mandible and the front teeth are worn. The patient has a right carotid endarterectomy scar, but carotid pulses were strong and equal. No bruits were appreciated. BACK: Without spinous process tenderness. No CVA tenderness. CHEST: Completely clear to auscultation and percussion. CARDIOVASCULAR: Revealed a normal S1 and S2. No murmur, rub, or gallop was noted. The S2 sound was a bit prominent. ABDOMEN: Soft, slightly obese, but nontender without organomegaly or masses. Bowel sounds are normal. No bruits are noted. EXTREMITIES: Without clubbing. No edema. He had some fusiform swelling of the knees without effusion, erythema, or warmth. NEUROLOGIC: He has a marked decrease in hearing. His cranial nerves were intact. His sensory and motor exam was otherwise normal. Reflexes were intact. LABORATORY DATA: Today revealed a hemoglobin of 10.5, hematocrit 30.6, MCV was elevated at 103. His white count was 55,000 and his platelets were 197,000, differential was unremarkable. ProTime INR was 2.95. Sodium 139, potassium is 6.4, chloride was 107, CO2 was 25, BUN was 50, creatinine 2.0, random glucose 103, magnesium was 1.9, pH was 7.42, PO2 was 91, pCO2 of 33, and this was on room air, bicarb was 21. Urinalysis was unremarkable. BNP was elevated at 1220. IMPRESSION: 1. Hyperkalemia presumably secondary to his medications and dehydration with acute on chronic renal insufficiency. 2. Arteriosclerotic heart disease with previous history of coronary artery bypass, aortic valve replacement, and chronic atrial fibrillation complicated by congestive heart failure. 3. Hypothyroidism. 4. BPH with bladder outlet obstruction. 5. Recurrent dermatitis. PLAN: The patient will be admitted, placed on telemetry, Kayexalate has been started and will hydrate with intravenous normal saline. Hold off on his digoxin until we see his dig level and watch his creatinine closely. Monitor his fluid status closely and intermittent small doses of furosemide may be needed. We will proceed from there. /[id number] /MODL
[2016-07-27] MEDS: Sodium Chloride 0.9% 1,000 ML IV SCH (01:37)
[2016-07-27] MEDS: Sodium Polystyrene Sulfonate 15 GM/60 ML Susp 60 ML Bot PO SCH (05:55)
[2016-07-27] MEDS ORDERED: Furosemide 20 MG/2 ML VIAL IVPUSH SCH (09:00)
[2016-07-27] MEDS: Triamcinolone Acetonide 0.1% Crm 15 GM Tube TOP SCH ×2 (09:00→20:48)
[2016-07-27] MEDS: Metoprolol Succinate 50 MG Tab.ER PO SCH (09:37)
[2016-07-27] MEDS: Levothyroxine 50 MCG Tab PO SCH (09:37)
[2016-07-27] MEDS: Omeprazole 20 MG Cap.CR PO SCH (09:37)
[2016-07-27] MEDS: Allopurinol 300 MG Tab PO SCH (09:37)
[2016-07-27] MEDS: Finasteride 5 MG Tab PO SCH (09:37)
[2016-07-27] MEDS: Aspirin 81 MG Tab.EC PO SCH (09:37)
[2016-07-27] MEDS: Tamsulosin 0.4 MG Cap.ER PO SCH (09:38)
[2016-07-27] MEDS: Calcium Carbonate/Vitamin D3 1250 MG-200 Unit Tab PO SCH ×2 (09:38→20:48)
--- NOTE | 2016-07-27 12:05 | PN ---
DATE SEEN: 07/27/2016 SUBJECTIVE: This 86-year-old gentleman seen today for followup of his hyperkalemia. He has a history of arteriosclerotic heart disease with chronic atrial fibrillation and intermittent congestive heart failure and acute chronic renal insufficiency. He says he had a fairly good night. Denies any other complaints. He has been stooling frequently. He says they are somewhat loose. Denies any headaches or blurred vision, shortness of breath or palpitations or chest pain. He has had no nausea or vomiting. No dysuria or hematuria. Appetite has been actually quite good this morning. MEDICATIONS: Reviewed. ALLERGIES: Reviewed. OBJECTIVE: GENERAL: He appears to be quite comfortable. At this time in no acute distress. VITAL SIGNS: Afebrile. Pulse is 68 and irregularly irregular. Blood pressure 124/71. O2 saturation 95% on room air. HEENT: Unremarkable. Mucous membranes are pink and moist. BACK: A mild kyphosis, but no spinous process tenderness. CHEST: Completely clear. CARDIOVASCULAR: Revealed a normal S1 and S2 with irregularly irregular rhythm. There are no gallop or rub. ABDOMEN: Soft. No specific point tenderness is noted. There is no rebound or rigidity. EXTREMITIES: Without clubbing, no edema. No ulcerations or areas of breakdown. LABORATORY DATA: Lab today revealed his sodium 141, potassium of 4.6. His creatinine has dropped to 1.9 and BUN of 45. IMPRESSION: 1. Acute hyperkalemia, secondary to a combination of increased potassium ingestion and acute on chronic renal insufficiency. 2. Chronic atrial fibrillation with a history of intermittent congestive heart failure. 3. Previous history of BPH with bladder outlet obstruction. 4. History of hypothyroidism. PLAN: At this point, we will discontinue the Kayexalate. I am going to restart the potassium as I am sure the Kayexalate continue to work at 10 mEq daily and we will restart his Lasix at 20 mg daily. Push oral fluids as much as possible and continue to monitor his creatinine and serum potassium. He will be transferred out of ICU and increase his activity. Follow from there. /[id number] WM/MODL
[2016-07-27] MEDS: Potassium Chloride 10 MEQ Tab.ER PO SCH (13:47)
[2016-07-27] MEDS: traMADol 50 MG Tab PO SCH ×2 (13:48→20:50)
[2016-07-27] MEDS ORDERED: Warfarin 4 MG Tab PO SCH (16:00)
[2016-07-28] MEDS: Omeprazole 20 MG Cap.CR PO SCH (08:19)
[2016-07-28] MEDS: Levothyroxine 50 MCG Tab PO SCH (08:19)
[2016-07-28] MEDS: Tamsulosin 0.4 MG Cap.ER PO SCH (08:20)
[2016-07-28] MEDS: Calcium Carbonate/Vitamin D3 1250 MG-200 Unit Tab PO SCH (08:20)
[2016-07-28] MEDS: Aspirin 81 MG Tab.EC PO SCH (08:20)
[2016-07-28] MEDS: Potassium Chloride 10 MEQ Tab.ER PO SCH (08:20)
[2016-07-28] MEDS: Finasteride 5 MG Tab PO SCH (08:21)
[2016-07-28] MEDS: Metoprolol Succinate 50 MG Tab.ER PO SCH (08:21)
[2016-07-28] MEDS: traMADol 50 MG Tab PO SCH (08:23)
[2016-07-28] MEDS: Allopurinol 300 MG Tab PO SCH (08:24)
[2016-07-28] MEDS: Triamcinolone Acetonide 0.1% Crm 15 GM Tube TOP SCH (08:27)
[2016-07-28] MEDS ORDERED: Furosemide 20 MG Tab PO SCH (09:00)
[2016-07-28 11:51] VITALS: BP 117/57
--- NOTE | 2016-07-28 11:51 | PN ---
DATE SEEN: 07/28/2016 SUBJECTIVE: This 86-year-old gentleman is seen today for a followup of his hyperkalemia. He continues to do well and has had no difficulties. Denies any shortness of breath or chest pain. He says his appetite has been good. He has had no muscle weakness. Denies any nausea, vomiting, or diarrhea. His medications were reviewed and allergies were reviewed, all of which are accurate. OBJECTIVE: GENERAL: He is sitting comfortably and at this time appears to be in no acute distress. VITAL SIGNS: Afebrile. Blood pressure is 110/61, pulse is 61 and slightly irregular, respirations are 18 and unlabored. HEENT: Unremarkable. There is no jugular venous distention while sitting upright. CHEST: Completely clear. CARDIOVASCULAR: Revealed a slightly irregular rhythm without gallop or rub. ABDOMEN: Unremarkable. EXTREMITIES: Without clubbing, no edema. No ulcerations or areas of breakdown are noted. LABORATORY DATA: Today revealed his hemoglobin to be stable at 10.9, white count was normal at 6400, platelets were 220,000. MCV was 99.4. His pro-time INR was 2.91. Sodium today was 139, potassium of 4.3, chloride of 105. Creatinine was 1.9 and BUN of 45. IMPRESSION: 1. Hyperkalemia, improved. 2. [id number] renal insufficiency. 3. Arteriosclerotic heart disease with a history of atrial fibrillation and intermittent congestive heart failure. 4. Previous history of benign prostatic hypertrophy. 5. Hypothyroidism. PLAN: At this point, we will discharge him home. Continue his medicines but cut his furosemide down to 20 mg daily. He is to weigh himself every day and if his weight increases by 3 or more pounds two consecutive days, then I would like him to increase his Lasix to 20 mg b.i.d. for 2 days until his weight comes down and then back to daily. We will continue the potassium at 10 mEq daily rather than 40 and a followup panel 8 and review with his local provider should be accomplished in a week. If there are other difficulties or should he become worse in any other way to let us know. /[id number] /GILMAL
== END 2016-07-28 14:00 | disposition home health service (06) | DRG 641 ==
LOC: FB.ED 14:19 → FB.ICU 17:02 → FB.MS 07-27 10:21
PROVIDERS: ADMIT Family Medicine; ATTEND Family Medicine
DX: E87.5 Hyperkalemia (principal); I13.0 Hypertensive heart and chronic kidney disease with heart failure and stage 1 through stage 4 chronic kidney disease, or unspecified chronic kidney disease; N17.9 Acute kidney failure, unspecified; N13.8 Other obstructive and reflux uropathy; I48.2 Chronic atrial fibrillation; Z66 Do not resuscitate; E03.9 Hypothyroidism, unspecified; Z87.891 Personal history of nicotine dependence; R00.1 Bradycardia, unspecified; I25.10 Atherosclerotic heart disease of native coronary artery without angina pectoris; I50.9 Heart failure, unspecified; E86.0 Dehydration; N18.9 Chronic kidney disease, unspecified; Z79.01 Long term (current) use of anticoagulants; Z86.73 Personal history of transient ischemic attack (TIA), and cerebral infarction without residual deficits; N40.1 Benign prostatic hyperplasia with lower urinary tract symptoms; L30.8 Other specified dermatitis; M19.90 Unspecified osteoarthritis, unspecified site; M54.9 Dorsalgia, unspecified; G89.29 Other chronic pain; M10.9 Gout, unspecified; I25.2 Old myocardial infarction; E78.00 Pure hypercholesterolemia, unspecified; Z95.2 Presence of prosthetic heart valve; Z95.1 Presence of aortocoronary bypass graft; H91.90 Unspecified hearing loss, unspecified ear; H54.7 Unspecified visual loss; Z79.82 Long term (current) use of aspirin
CPT/HCPCS: 36415; 36600; 80048; 81001; 82803; 83735; 83880; 84484; 85025; 85610; 93005; 94664; 96361; 96374; 96375; 99285; A9270; J0610; J1815; J1940; J7040; J7620; 85027; 99238

== ENCOUNTER 2016-09-02 10:15 | Emergency (ER) | payer MEDICARE, BC ==
--- NOTE | 2016-09-02 10:40 | EDM.PDOC ---
ED HPI GENERAL MEDICAL PROBLEM - General Chief Complaint: Cardiovascular Problem Stated Complaint: short of breath Time Seen by Provider: 09/02/16 10:15 Source of Information: Reports: Patient, Old Records History Limitations: Reports: No Limitations - History of Present Illness INITIAL COMMENTS - FREE TEXT/NARRATIVE: Cecil is reporting perceived SOB on exertion over the past 24 hrs, significance unknown. His wt is down 7# since yesterday by his scale. There is no reported chest pain, palpitations, dizziness, orthopnea, PND or PNA. He has been med compliant. He usually is seen at the [facility], next appt September 19. - Related Data Allergies Allergy/AdvReac Type Severity Reaction Status Date / Time No Known Allergies Allergy Verified 07/26/16 15:19 Home Meds: Home Meds Acetaminophen [Tylenol Extra Strength] 1,000 mg PO ACBREAKFAST 09/09/15 [History ] Acetaminophen [Tylenol Extra Strength] 500 mg PO BEDTIME 09/09/15 [History] Allopurinol [Zyloprim] 150 mg PO DAILY 09/09/15 [History] Aspirin [Halfprin] 81 mg PO DAILY 09/09/15 [History] Calcium Carb & Citrate/Vit D3 [Calcium + D3 ER Tablet] 1 each PO BID 09/09/15 [ History] Digoxin [Lanoxin] 125 mcg PO MOWEFR 09/09/15 [History] Levothyroxine [Synthroid] 50 mcg PO DAILY 09/09/15 [History] Metoprolol Succinate 50 mg PO DAILY 09/09/15 [History] Omeprazole 20 mg PO DAILY 09/09/15 [History] Simvastatin [Zocor] 80 mg PO BEDTIME 09/09/15 [History] Tamsulosin [Flomax] 0.4 mg PO DAILY 09/09/15 [History] Triamcinolone Acetonide [Triamcinolone Acetonide 0.1% Crm] 15 gm TOP BID [History] Warfarin [Coumadin] 4 mg PO BEDTIME 09/09/15 [History] traMADol [Ultram] 50 mg PO BID 09/09/15 [History] Magnesium Oxide 500 mg PO DAILY 12/04/15 [History] Finasteride 5 mg PO DAILY 07/15/16 [History] Furosemide [Lasix] 20 mg PO DAILY tablet 07/28/16 [Rx] Potassium Chloride [Klor-Con M20] 10 meq PO DAILY #30 tab.er 07/28/16 [Rx] Past Medical History HEENT History: Reports: Cataract, Hard of Hearing, Impaired Vision Cardiovascular History: Reports: Afib, Bypass, Heart Valve Replacement, High Cholesterol, Hypertension, DE Other Cardiovascular History: DE 2008- bypass Respiratory History: Reports: SOB Gastrointestinal History: Reports: Cholelithiasis Genitourinary History: Reports: Chronic Renal Insuffiency Musculoskeletal History: Reports: Arthritis, Back Pain, Chronic, Gout, Osteoarthritis Neurological History: Reports: CVA, TIA Other Neuro History: CVA x 2 Endocrine/Metabolic History: Reports: Hypothyroidism Hematologic History: Reports: Blood Transfusion(s), Other (See Below) Other Hematologic History: is on coumadin for chronic atrial fib Oncologic (Cancer) History: Reports: Basal Cell Carcinoma Dermatologic History: Reports: Chronic Cellulitis, Venous Stasis Dermatitis - Infectious Disease History Infectious Disease History: Reports: Chicken Pox - Past Surgical History HEENT Surgical History: Reports: Oral Surgery Cardiovascular Surgical History: Reports: Carotid Endarterectomy, Coronary Artery Bypass Oncologic Surgical History: Reports: Other (See Below) Social & Family History - Family History Family Medical History: Noncontributory - Tobacco Use Smoking Status *Q: Former Smoker Years of Tobacco use: 20 Used Tobacco, but Quit: Yes Month Tobacco Last Used: n/a Second Hand Smoke Exposure: No - Caffeine Use Caffeine Use: Reports: Coffee, Soda - Alcohol Use Days Per Week of Alcohol Use: 0 - Recreational Drug Use Recreational Drug Use: No ED ROS GENERAL - Review of Systems Review Of Systems: See Below Constitutional: Reports: Weight Loss (7#) HEENT: Reports: No Symptoms Respiratory: Reports: No Symptoms Cardiovascular: Reports: Dyspnea on Exertion Endocrine: Reports: Fatigue GI/Abdominal: Reports: No Symptoms : Reports: No Symptoms Musculoskeletal: Reports: No Symptoms Skin: Reports: No Symptoms Neurological: Reports: No Symptoms Psychiatric: Reports: No Symptoms Hematologic/Lymphatic: Reports: No Symptoms Immunologic: Reports: No Symptoms ED EXAM, GENERAL - Physical Exam Exam: See Below Exam Limited By: No Limitations General Appearance: Alert, WD/WN, No Apparent Distress, Anxious Throat/Mouth: Normal Inspection, Normal Oropharynx Head: Atraumatic, Normocephalic Neck: Normal Inspection, Supple, Non-Tender, Full Range of Motion Respiratory/Chest: No Accessory Muscle Use, Chest Non-Tender, Decreased Breath Sounds, Crackles Cardiovascular: Systolic Murmur, Irregularly Irregular GI/Abdominal: Normal Bowel Sounds, Soft, Non-Tender, No Organomegaly, No Distention, No Abnormal Bruit (Male) Exam: Deferred Rectal (Males) Exam: Deferred Back Exam: Normal Inspection Extremities: Normal Inspection Neurological: Alert, Oriented, CN II-XII Intact, No Motor/Sensory Deficits Psychiatric: Normal Affect, Anxious Skin Exam: Warm, Dry, Ecchymosis Lymphatic: No Adenopathy Course - Vital Signs Text/Narrative:: Cecil remained stable at the [facility] ED. Labs noted: Hgb 10.2 gm, WBC 7,100, plts 160,000; INR 2.09; BUN 40, Cr 1.7; nonFBS 215 mg%; BNP 1500 compares with BNP 1770 on July 14, 1219 on July 26, 919 on September 02, consistent with chronic congestive cardiomyopathy. There are no clinical findings for exacerbation at this time. He does have appts at the [facility] in 2 weeks. - Orders/Labs/Meds Orders: Active Orders 24 hr Category Date Time Status EKG 12 Lead [EK] Routine Ther 09/02/16 10:34 Ordered Labs: Laboratory Tests 09/02/16 09/02/16 09/02/16 Range/Units 10:45 10:45 10:45 WBC 7.1 (4.5-12.0) X10-3/uL RBC 2.97 L (4.30-5.75) x10(6)uL Hgb 10.1 L (11.5-15.5) g/dL Hct 30.4 (30.0-51.3) % MCV 102.3 H (80-96) fL MCH 34.0 H (27.7-33.6) pg MCHC 33.2 (32.2-35.4) g/dL RDW 18.7 H (11.5-15.5) % Plt Count 160 (125-369) X10(3)uL MPV 9.0 (7.4-10.4) fL Add Manual Diff Yes Neutrophils % (Manual) 86 H (46-82) % Lymphocytes % (Manual) 11 L (13-37) % Monocytes % (Manual) 2 L (4-12) % Eosinophils % (Manual) 1 (0-5) % Anisocytosis Moderate H Macrocytosis Moderate H PT 21.4 H (8.7-11.1) INR 2.09 H (0.89-1.13) Sodium 136 (135-145) mmol/L Potassium 4.1 (3.5-5.3) mmol/L Chloride 108 (100-110) mmol/L Carbon Dioxide 22 L (23-29) mmol/L BUN 40 H (8-23) mg/dL Creatinine 1.7 H (0.6-1.3) mg/dL Est Cr Clr Drug Dosing TNP Estimated GFR (MDRD) 38 L (>60) BUN/Creatinine Ratio 23.5 H (9-20) Glucose 215 H D (80-116) mg/dL Calcium 8.9 (8.6-10.2) mg/dL Total Bilirubin 0.8 (0.1-1.3) mg/dL AST 34 H D (5-27) IU/L ALT 21 D (14-26) IU/L Alkaline Phosphatase 56 (56-112) IU/L Troponin I (0.02-0.06) NG/ML B-Natriuretic Peptide (0-100) pg/mL Total Protein 7.5 (6.0-8.0) g/dL Albumin 3.6 (3.2-4.6) g/dL Globulin 3.9 g/dL Albumin/Globulin Ratio 0.9 09/02/16/08/14 Range/Units 10:45 10:45 WBC (4.5-12.0) X10-3/uL RBC (4.30-5.75) x10(6)uL Hgb (11.5-15.5) g/dL Hct (30.0-51.3) % MCV (80-96) fL MCH (27.7-33.6) pg MCHC (32.2-35.4) g/dL RDW (11.5-15.5) % Plt Count (125-369) X10(3)uL MPV (7.4-10.4) fL Add Manual Diff Neutrophils % (Manual) (46-82) % Lymphocytes % (Manual) (13-37) % Monocytes % (Manual) (4-12) % Eosinophils % (Manual) (0-5) % Anisocytosis Macrocytosis PT (8.7-11.1) INR (0.89-1.13) Sodium (135-145) mmol/L Potassium (3.5-5.3) mmol/L Chloride (100-110) mmol/L Carbon Dioxide (23-29) mmol/L BUN (8-23) mg/dL Creatinine (0.6-1.3) mg/dL Est Cr Clr Drug Dosing Estimated GFR (MDRD) (>60) BUN/Creatinine Ratio (9-20) Glucose (80-116) mg/dL Calcium (8.6-10.2) mg/dL Total Bilirubin (0.1-1.3) mg/dL AST (5-27) IU/L ALT (14-26) IU/L Alkaline Phosphatase (56-112) IU/L Troponin I 0.01 L (0.02-0.06) NG/ML B-Natriuretic Peptide 1500 H* (0-100) pg/mL Total Protein (6.0-8.0) g/dL Albumin (3.2-4.6) g/dL Globulin g/dL Albumin/Globulin Ratio Departure - Departure Time of Disposition: 12:10 Disposition: Home, Self-Care 01 Condition: fair Clinical Impression: CHF (congestive heart failure) Qualifiers: Congestive heart failure type: combined Congestive heart failure chronicity: acute on chronic Qualified Code(s): I50.43 - Acute on chronic combined systolic (congestive) and diastolic (congestive) heart failure - Problem List & Annotations (1) CHF (congestive heart failure) SNOMED Code(s): 66549786 Code(s): I50.9 - HEART FAILURE, UNSPECIFIED Status: Acute Current Visit: Yes Annotation/Comment:: Cecil would benefit from follow up at [facility], and is encouraged to keep appts this month, and to see airconditioning drafting officer this week. No med changes were suggested in view of wt reduction. Qualifiers: Congestive heart failure type: combined Congestive heart failure chronicity : acute on chronic Qualified Code(s): I50.43 - Acute on chronic combined systolic (congestive) and diastolic (congestive) heart failure - Problem List Review Problem List Initiated/Reviewed/Updated: Yes - My Orders Last 24 Hours: My Active Orders 09/02/16 10:34 EKG 12 Lead [EK] Routine - Assessment/Plan Last 24 Hours: My Active Orders 09/02/16 10:34 EKG 12 Lead [EK] Routine Plan: Follow up at [facility] this week. A copy of ED report will be provided.
[2016-09-02 13:09] VITALS: BP 137/64
== END 2016-09-02 12:25 | disposition home or self-care (01) ==
LOC: FB.ED 10:15
DX: I13.0 Hypertensive heart and chronic kidney disease with heart failure and stage 1 through stage 4 chronic kidney disease, or unspecified chronic kidney disease (principal); I50.43 Acute on chronic combined systolic (congestive) and diastolic (congestive) heart failure; N18.9 Chronic kidney disease, unspecified; I48.91 Unspecified atrial fibrillation; E78.00 Pure hypercholesterolemia, unspecified; I25.2 Old myocardial infarction; M19.90 Unspecified osteoarthritis, unspecified site; E03.9 Hypothyroidism, unspecified; Z98.890 Other specified postprocedural states; Z87.891 Personal history of nicotine dependence; Z79.82 Long term (current) use of aspirin; Z79.899 Other long term (current) drug therapy; Z79.01 Long term (current) use of anticoagulants
CPT/HCPCS: 36415; 80053; 83880; 84484; 85025; 85610; 93005; 99282; 99285